=== PATIENT | female | born 1940 | race Asian ===

== ENCOUNTER 2023-02-01 21:03 | Emergency (ER) | payer SELFPAY ==
[~2023-02-01] VITALS: Ht 150 cm; Wt 50.0 kg
[2023-02-01 21:09] VITALS: TEMP 97.5
[2023-02-01] MEDS ORDERED: TENORMIN 5050 MG/TAB PO ×2 (21:12→21:34)
[2023-02-01 21:44] VITALS: BP 159/76; PULSE 88
== END 2023-02-01 21:44 | disposition home or self-care (01) ==
LOC: COL.ER 21:03
DX: Z76.0 Encounter for issue of repeat prescription (principal); I10 Essential (primary) hypertension